=== PATIENT | female | born 1995 | race African-American/Black ===

== ENCOUNTER 2021-02-01 12:50 | Emergency (ER) | payer MEDICAID ==
[~2021-02-01] VITALS: Ht 160 cm; Wt 61.2 kg
[2021-02-01 12:51] VITALS: BP 117/49
[2021-02-01] MEDS ORDERED: LIDOCAINE MPF 1% 10 MG/ML VIAL INJ ONE (13:15)
[2021-02-01] MEDS ORDERED: KETOROLAC 30 MG/ML VIAL IM ONE (13:15)
[2021-02-01] MEDS ORDERED: NAPR-54 PO (13:21)
[2021-02-01] MEDS ORDERED: CEPH-588 PO (13:21)
[2021-02-01 14:00] VITALS: BP 117/49
== END 2021-02-01 14:01 | disposition home or self-care (01) ==
LOC: MED 12:50
DX: N61.1 Abscess of the breast and nipple (principal)
CPT/HCPCS: 10060; 96372; 99283; J1885; J2001

== ENCOUNTER 2021-03-06 14:49 | Emergency (ER) | payer MEDICAID ==
[~2021-03-06] VITALS: Ht 162.6 cm; Wt 59.0 kg
[~2021-03-06 14:49] MED LIST: CEPH-588 PO; NAPR-54 PO
[2021-03-06 14:55] VITALS: BP 134/74
[2021-03-06] MEDS ORDERED: IBUP-2213 PO (15:23)
[2021-03-06] MEDS ORDERED: PYR100 PO (15:23)
[2021-03-06] MEDS ORDERED: NITR100C7 PO (15:23)
[2021-03-06 15:44] VITALS: BP 134/74
--- NOTE | 2021-03-06 15:45 | NUR ---
Patient discharged with v/s stable. Written and verbal after care instructions given and explained. Patient alert, oriented and verbalized understanding of instructions. Ambulatory with steady gait. All questions addressed prior to discharge. ID band removed. Patient advised to follow up with PMD. Rx of IBUPROFEN, PYRIDIUM & MACROBID given. Patient educated on indication of medication including possible reaction and side effects. Opportunity to ask questions provided and answered.
== END 2021-03-06 15:45 | disposition home or self-care (01) ==
LOC: MED 14:49
DX: N39.0 Urinary tract infection, site not specified (principal); Z79.899 Other long term (current) drug therapy
CPT/HCPCS: 81002; 81025; 87086; 99283